=== PATIENT | male | born 1960 | race Caucasian/White ===

== ENCOUNTER 2020-09-06 09:26 | Emergency (ER) | payer OTHER, SELFPAY ==
[2020-09-06 09:28] VITALS: BP 142/92; PULSE 77; RESP 14; TEMP 36.8; O2SAT 97
--- NOTE | 2020-09-06 09:36 | PC.NURSE ---
pt denies injury,denies urinary sx and no loss bowel/bladder.
--- NOTE | 2020-09-06 10:40 | ED_ITS ---
HPI - Back Pain/Injury <MELLO Pineda - Last Filed: 09/06/20 15:25> General Chief Complaint: Back Pain/Injury Stated Complaint: right side pain in hip/back,numbness in foot/leg Time Seen by Provider: 09/06/20 10:20 Source: patient Limitations: no limitations History of Present Illness HPI Narrative: 59yo male presents to the emergency department for right-sided back pain that started this morning. 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 He woke up this morning and noticed he had spasms on his right mid and lower back, he also noticed that he had some numbness and tingling that radiated down his right leg. He states it is worse when he attempts to stretch and extend his leg. Patient denies any loss of bowel or bladder control, swelling of the leg, saddle paresthesias, nausea, vomiting, diarrhea, fevers, chills, chest pain, or any other concerns. He took Aleve this morning which has helped. Related Data Previous Rx's Medication Instructions Recorded cyclobenzaprine 10 mg PO TID PRN #14 tab 09/06/20 prednisone 40 mg PO DAILY 4 Days #8 tab 09/06/20 Allergies Allergy/AdvReac Type Severity Reaction Status Date / Time No Known Drug Allergies Allergy Verified 09/06/20 09:34 Review of Systems <MELLO Pineda - Last Filed: 09/06/20 15:25> Review of Systems Narrative: REVIEW OF SYSTEMS: GENERAL: Denies fever or chills. HENT: No head trauma. CARDIOVASCULAR: No chest pain. RESPIRATORY: No shortness of breath or cough. GASTROINTESTINAL: No nausea or vomiting. GENITOURINARY: No flank pain or dysuria. MUSCULOSKELETAL: Complains of right-sided back spasms and pain with right-sided leg tingling and numbness, see HPI. INTEGUMENTARY: No rash. NEURO: Numbness and tingling noted to right leg. Patient History <MELLO Pineda - Last Filed: 09/06/20 15:25> Medical History No significant medical problems Social History Smoking Status: Unknown if ever smoked Smoking Status: Unknown if ever smoked alcohol intake frequency: holidays/special occasions only Substance Use Type: does not use Exam <MELLO Pineda - Last Filed: 09/06/20 15:25> Initial Vital Signs Initial Vital Signs: Vital Signs Temperature 98.2 F 09/06/20 09:28 Pulse Rate 77 09/06/20 09:28 Respiratory Rate 14 09/06/20 09:28 Blood Pressure 142/92 H 09/06/20 09:28 Pulse Oximetry 97 09/06/20 09:28 PHYSICAL EXAMINATION: GENERAL: Awake and alert. HENT: Normocephalic, atraumatic. EYES: Symmetrical, sclera white, no periorbital swelling. RESPIRATORY: Normal respiratory rate, trachea midline, airway patent. No stridor, nasal flaring or accessory muscle use. MUSCULOSKELETAL: Tenderness to right mid to lower sternocleidomastoid. Positive straight leg test. Equal lower extremity strength bilaterally. Normal gait and coordination. Equal tone and mass bilaterally. No spinal tenderness or deformities. EXTREMITIES: CMS intact. No pedal edema. SKIN: Warm, dry, soft, appropriate color for ethnicity. No lesions, rashes, or wounds. NEURO: Alert and Oriented X 3. No sensory deficits. PSYCH: Appropriate affect and mood. <Galdino Hopkins DO - Last Filed: 09/06/20 16:47> Initial Vital Signs Initial Vital Signs: Vital Signs Temperature 98.2 F 09/06/20 09:28 Pulse Rate 77 09/06/20 09:28 Respiratory Rate 14 09/06/20 09:28 Blood Pressure 142/92 H 09/06/20 09:28 Pulse Oximetry 97 09/06/20 09:28 Course <MELLO Pineda - Last Filed: 09/06/20 15:25> Course Course Narrative: Patient given a dose of prednisone and Toradol in the emergency department. I discussed with patient that we cannot legally order a legal drop test in the emergency department, there is no medical indication for drug test at this time. We discussed this with our lab, lab stated that illegal drug test can be done as ordered by his work. Discussed importance of decreasing weight lifted over the next week, follow-up, and not driving with muscle relaxers. Orders Ordered: Discontinued Medications Ketorolac Tromethamine (Ketorolac 60 Mg/2 Ml Vial) 30 mg IM NOW ONE Stop: 09/06/20 10:34 Last Admin: 09/06/20 10:56 Dose: 30 mg Documented by: OLESYA Prednisone (Prednisone 20 Mg Tablet) 40 mg PO NOW ONE Stop: 09/06/20 10:34 Last Admin: 09/06/20 10:56 Dose: 40 mg Documented by: OLESYA Vital Signs Vital signs: Vital Signs - 8 hr 09/06/20 09:28 09/06/20 11:25 09/06/20 11:26 Temperature 98.2 F Pulse Rate 77 61 Respiratory Rate 14 16 Blood Pressure 142/92 H 138/86 Pulse Oximetry 97 99 <Galdino Hopkins DO - Last Filed: 09/06/20 16:47> Orders Ordered: Discontinued Medications Ketorolac Tromethamine (Ketorolac 60 Mg/2 Ml Vial) 30 mg IM NOW ONE Stop: 09/06/20 10:34 Last Admin: 09/06/20 10:56 Dose: 30 mg Documented by: OLESYA Prednisone (Prednisone 20 Mg Tablet) 40 mg PO NOW ONE Stop: 09/06/20 10:34 Last Admin: 09/06/20 10:56 Dose: 40 mg Documented by: OLESYA Vital Signs Vital signs: Vital Signs - 8 hr 09/06/20 09:28 09/06/20 11:25 09/06/20 11:26 Temperature 98.2 F Pulse Rate 77 61 Respiratory Rate 14 16 Blood Pressure 142/92 H 138/86 Pulse Oximetry 97 99 MDM - Back Pain/Injury <MELLO Pineda - Last Filed: 09/06/20 15:25> Medical Records Attestation: I reviewed the patient's medical records. Lab Data Attestation: I reviewed the patient's lab results. MDM Narrative Medical decision making narrative: History and examination consistent with sciatica. I discussed with patient that the mainstay of treatment is NSAIDs as well as muscle relaxers as he reports spasming on the right side of his back. We disc ussed he cannot drive with muscle relaxers, prescription was given. Additionally, we discussed the pros and cons to steroids, due to patient's numbness and tingling, steroids may be beneficial. He states that he would like them at this time. Less concern for CVA given lack of neuro changes, presence of straight leg raise, and history of lifting and back pain. No lower extremity weakness. Less concern for cauda equina given lack of saddle paresthesias, no loss of bowel or bladder control. Return precautions given for new or worsening symptoms. He was encouraged to follow up with his PCP in 1 week for further evaluation and clearance for work. Patient agreed to plan of care verbalized understanding. Discharge Plan Departure Patient Disposition: Home Clinical Impression: Back spasm Sciatica Qualifiers: Laterality: right Qualified Code(s): M54.31 - Sciatica, right side Instructions: DI for Back Pain With Sciatica, DI for Back Spasm Activity Restrictions/Additional Instructions: Thank you for entrusting me with your care today. As discussed, I suspect your pain is most likely caused by sciatica. I recommend taking ibuprofen 600mg every 6 hours for the next 2-3 days. I prescribed you prednisone to help reduce the nerve sensation that you feel. Additionally, I prescribed you a muscle relaxer called methocarbamol. This can make you sleepy, do not drive while taking this medication. Please follow-up with your primary care provider in the next week for further evaluation. Return emergency department for any new or worsening symptoms. Your employer will need to order a drug test, it can be collected in the lab. We are unable to order a legal drug test from the ED. Prescriptions: New prednisone 20 mg tablet 40 mg PO DAILY 4 Days Qty: 8 RF: 0 cyclobenzaprine 10 mg tablet 10 mg PO TID PRN (Reason: muscle spasm) Qty: 14 RF: 0 <Galdino Hopkins, DO - Last Filed: 09/06/20 16:47> [facility]: Dr Hopkins Co-Sign Statement: I was available for consultation during this patient's emergency department visit. This chart is signed by myself for administrative purposes only. I did not have direct contact with this patient during this visit. They were seen ind ependently by the APC.
[2020-09-06] MEDS: KETOROLAC 60 MG/2 ML VIAL 30 MG IM (10:56)
[2020-09-06] MEDS: predniSONE 20 MG TABLET 40 MG PO (10:56)
[2020-09-06 11:25] VITALS: BP 138/86; PULSE 61; O2SAT 99
[2020-09-06 11:26] VITALS: RESP 16
== END 2020-09-06 11:34 | disposition home or self-care (01) ==
PROVIDERS: Emergency Provider Nurse Practitioner
DX: R25.2 Cramp and spasm (principal); M54.31 Sciatica, right side; X50.0XXA Overexertion from strenuous movement or load, initial encounter; Y99.0 Civilian activity done for income or pay
CPT/HCPCS: 96372; 99281; 99283; J1885